=== PATIENT | female | born 1980 ===

== ENCOUNTER 2018-07-14 14:50 | Outpatient (REF) | payer OTHER, SELFPAY ==
[2018-07-15 17:45] LABS: Estradiol 43 pg/ml
[2018-07-16 10:26] LABS: FSH 7.7 mIU/ml; LH 4.7 mIU/ml
== END 2018-07-14 15:10 ==
LOC: NCHCN 14:50
PROVIDERS: PCP Family Medicine; Visit Provider Family Medicine
DX: R53.83 Other fatigue (principal); R68.82 Decreased libido
CPT/HCPCS: 82670; 83001; 83002

== ENCOUNTER 2025-02-07 12:02 | Outpatient (REF) | payer OTHER, SELFPAY ==
[2025-02-07 15:24] LABS: HCT 44.4 % (36.0-46.0); MCHC 31.5 % (32.0-36.0); MCV 92 fL (80-95); MPV 11.9 fL (8.0-11.0); Platelet Count 202 10^3/uL (130-400); RBC 4.83 10^6/uL (3.93-5.22); RDW-SD 44.1 fL; WBC 5.02 10^3/uL (4.4-10.8)
[2025-02-07 16:00] LABS: ALT 24 U/L (14-59); AST 24 U/L (15-37); Albumin 4.1 g/dL (3.4-5.0); Alkaline Phosphatase 68 U/L (46-116); Anion Gap 8.4 mmol/L (3-11); BUN 7 mg/dL (7-18); Bilirubin, Total 0.5 mg/dL (0.2-1.0); CO2 29.6 mmol/L (21.0-32.0); CREATININE 0.7 mg/dL (0.55-1.02); Calcium 9.2 mg/dL (8.5-10.1); Calculated LDL 83 mg/dL (<100); Chloride 102 mmol/L (98-107); Cholesterol 180 mg/dL (<200); Estimated GFR 107.95 (mL/min/1.73m2); Glucose 92 mg/dL (74-106); HDL Cholesterol 89 mg/dL (>or=50); Sodium 140 mmol/L (136-145); Total Protein 8.5 g/dL (6.4-8.2); Triglyceride 40 mg/dL (<150)
== END 2025-02-07 12:03 | disposition home or self-care (01) ==
LOC: NCHCN 12:02
PROVIDERS: PCP Nurse Practitioner Community Health; Visit Provider Internal Medicine
DX: Z00.00 Encounter for general adult medical examination without abnormal findings (principal)
CPT/HCPCS: 80053; 80061; 85027

== ENCOUNTER 2025-04-11 18:37 | Outpatient (REF) | payer OTHER, SELFPAY ==
--- NOTE | 2025-04-11 16:00 | PAPFT_PTH ---
PATIENT: Thu Lockwood LOC: [facility]#:[id number] AGE/SX: 44/F ROOM: RE04/11/[address]: Hannah Shah : 1980 BED: DIS: 04/11/2025 SPEC #: [id number] RECD: 04/12/25 11:46 STATUS: JANYPoncho REQ #: [id number] RAIN: 04/11/25 16:[address]: Hannah Shah DEPT: [facility] Cytology RECD BY: Janelle Markham ENTERED: 04/12/25 11:47 SP TYPE: PAPFT OTHR DR: Lianne Pyle Tissues: 1 - CX/ENDOCX FOR PAP SMEARS Procedures: PAP THIN PREP/[facility] Screening HPV DNA PROBE Comments: [id number] (HPV 16 & 18/45)
== END 2025-04-11 18:38 | disposition home or self-care (01) ==
LOC: NCHCN 18:37
PROVIDERS: PCP Nurse Practitioner Community Health; Visit Provider Internal Medicine
DX: Z11.51 Encounter for screening for human papillomavirus (HPV) (principal); Z01.419 Encounter for gynecological examination (general) (routine) without abnormal findings
CPT/HCPCS: 88142; 87624